=== PATIENT | female | born 1995 | race Caucasian/White ===

== ENCOUNTER 2020-10-22 14:28 | Observation (INO) | payer MEDICAID ==
[~2020-10-22] VITALS: Ht 162.6 cm; Wt 106.6 kg
== END 2020-10-22 16:25 | disposition home or self-care (01) ==
LOC: 8 EST LDRP 14:28
PROVIDERS: ADMIT Obstetrics & Gynecology; ATTEND Obstetrics & Gynecology
DX: O62.9 Abnormality of forces of labor, unspecified (principal); O99.891 Other specified diseases and conditions complicating pregnancy; M54.9 Dorsalgia, unspecified; Z3A.35 35 weeks gestation of pregnancy
CPT/HCPCS: 59025; G0378; 99281

== ENCOUNTER 2020-11-14 18:09 | Inpatient (IN) | payer MEDICAID ==
[~2020-11-14] VITALS: Ht 162.6 cm; Wt 104.8 kg
[2020-11-14] MEDS ORDERED: LACTATED RINGERS 1,000 ML IV SCH (21:15)
[2020-11-14] MEDS ORDERED: DEXT 5%/LR + PITOCIN 20UNITS/L 1,000 ML IV SCH ×2 (21:15→22:30)
[2020-11-14] MEDS ORDERED: BUTORPHANOL TARTRATE 2 MG/ML VIAL IV PRN (21:15)
[2020-11-14] MEDS ORDERED: CARBOPROST TROMETHAMINE 250 MCG/ML AMPUL IM PRN (21:15)
[2020-11-14] MEDS ORDERED: LIDOCAINE HCL 1% 20ML VIAL (Pyxis) INJ INFIL SCH (21:15)
[2020-11-14] MEDS ORDERED: METHYLERGONOVINE MALEATE 0.2 MG/ML IM PRN (21:15)
[2020-11-14] MEDS ORDERED: NALOXONE HCL 0.4 MG/ML 1ML VIAL IM PRN (21:15)
[2020-11-14 22:15] LABS: BASOPHILS % 0.9 % (0.0-2.0); EOSINOPHILS % 0.6 % (0.0-5.0); HEMATOCRIT. 30.3 % (36.0-48.0); HEMOGLOBIN. 10.3 g/dL (12.0-16.0); LYMPHOCYTES % 31.9 % (20.0-50.0); MEAN CORPUSCULAR HEMOGLOBIN 29.8 pg (28.0-32.0); MEAN CORPUSCULAR VOLUME 87.8 fL (81.0-99.0); MEAN PLATELET VOLUME 13.2 fl (7.4-10.4); MONOCYTES % 5.1 % (2.0-8.0); NEUTROPHILS % 61.5 % (40.0-76.0); PLATELET 113 x1000/uL (130-400); RED BLOOD CELL COUNT 3.45 mill/uL (4.2-5.4)
[2020-11-14 22:17] LABS: CLARITY URINE CLEAR (CLEAR); COLOR URINE YELLOW (YELLOW); KETONES URINE NEGATIVE (NEGATIVE); LEUKOCYTE ESTERASE URINE TRACE (NEGATIVE); NITRITE URINE NEGATIVE (NEGATIVE); OCCULT BLOOD URINE 2+ (NEGATIVE); PH URINE 6.5 (4.5-8.0); PROTEIN URINE 1+ (NEGATIVE); SPECIFIC GRAVITY URINE 1.014 (1.005-1.030); UROBILINOGEN URINE 0.2 E.U./dL (0.2-1.0)
[2020-11-14 22:27] LABS: INR 0.9; PARTIAL THROMBOPLASTIN TIME 25.4 sec (23.4-31.0)
[2020-11-14 22:32] LABS: METHADONE URINE SCREEN NEGATIVE (NEGATIVE); OPIATES URINE SCREEN NEGATIVE (NEGATIVE)
[2020-11-14 22:33] LABS: *AMPHETAMINES SCREEN URINE NEGATIVE (NEGATIVE); *BARBITURATES SCREEN URINE NEGATIVE (NEGATIVE); *BENZODIAZEPINES SCREEN URINE NEGATIVE (NEGATIVE); *COCAINE SCREEN URINE NEGATIVE (NEGATIVE); CANNABINOID URINE SCREEN NEGATIVE (NEGATIVE); PHENCYCLIDINE URINE SCREEN NEGATIVE (NEGATIVE)
[2020-11-14] MEDS ORDERED: ROPIVACAINE HCL/PF EPIDURAL 200 ML EPI SCH (23:00)
[2020-11-15] MEDS ORDERED: DEXT 5%/LACTATED RINGERS 1,000 ML IV SCH ×2 (00:15→00:45)
[2020-11-15] MEDS ORDERED: LEVO175T7 MT (00:29)
[2020-11-15] MEDS ORDERED: VIT500LI PO (00:29)
[2020-11-15] MEDS ORDERED: FERR236T3 MT (00:29)
[2020-11-15] MEDS ORDERED: PREN-182 MT (00:29)
[2020-11-15] MEDS ORDERED: FENTANYL CITRATE/PF 50MCG/ML 2ML VIAL ONE (02:48)
[2020-11-15] MEDS ORDERED: ROPIVACAINE HCL/PF EPIDURAL 200 ML EPI ONE (02:48)
[2020-11-15] MEDS ORDERED: OXYTOCIN 20 UNITS in LACTATED RINGERS 1,000 ML IV SCH (08:30)
[2020-11-15 10:00] VITALS: BP 132/75
[2020-11-15] MEDS ORDERED: DIPHENHYDRAMINE 25MG CAPSULE PO PRN (10:00)
[2020-11-15] MEDS ORDERED: LANOLIN OINT 7GM TUBE TOP PRN (10:00)
[2020-11-15] MEDS ORDERED: DEXT 5%/LR + PITOCIN 20UNITS/L 1,000 ML IV SCH (10:00)
[2020-11-15] MEDS ORDERED: GLYCERIN/WITCH HAZEL LEAF MEDICATED PAD TOP PRN (10:00)
[2020-11-15] MEDS ORDERED: BENZOCAINE/LANOLIN/ALOE VERA SPRAY TOP PRN (10:00)
[2020-11-15] MEDS ORDERED: BISACODYL 10MG SUPP PR PRN (10:00)
[2020-11-15] MEDS ORDERED: HEMORRHOIDAL SUPP PR PRN (10:00)
[2020-11-15] MEDS ORDERED: RHO(D) IMMUNE GLOBULIN 300 MCG/SYR IM PRN (10:00)
[2020-11-15] MEDS ORDERED: ACETAMINOPHEN WITH CODEINE 300/30MG TABLET PO PRN (10:00)
[2020-11-15] MEDS ORDERED: IBUPROFEN 400MG TABLET PO PRN (10:00)
[2020-11-15 11:00] VITALS: BP 119/68
[2020-11-15 12:10] VITALS: BP 127/73
[2020-11-15] MEDS: MAGNESIUM/ALUMINUM HYDROXIDE/SIMETHICONE 30ML UDC PO SCH ×3 (12:20→21:18)
[2020-11-15] MEDS: SIMETHICONE 80MG TABLET CHEW PO SCH ×2 (12:21→21:19)
[2020-11-15 14:20] VITALS: BP 122/79
[2020-11-15] MEDS: IBUPROFEN 800MG TABLET PO PRN (17:05)
[2020-11-15] MEDS: DOCUSATE SODIUM 100MG CAPSULE PO SCH (21:17)
[2020-11-15 22:00] VITALS: BP 116/61
[2020-11-16 05:53] VITALS: BP 114/69
[2020-11-16 06:43] LABS: BASOPHILS % 0.4 % (0.0-2.0); EOSINOPHILS % 1.2 % (0.0-5.0); HEMATOCRIT. 31.4 % (36.0-48.0); HEMOGLOBIN. 10.4 g/dL (12.0-16.0); LYMPHOCYTES % 23.4 % (20.0-50.0); MEAN CORPUSCULAR HEMOGLOBIN 29.7 pg (28.0-32.0); MEAN CORPUSCULAR VOLUME 89.3 fL (81.0-99.0); MEAN PLATELET VOLUME 13.3 fl (7.4-10.4); MONOCYTES % 3.6 % (2.0-8.0); NEUTROPHILS % 71.4 % (40.0-76.0); PLATELET 110 x1000/uL (130-400); RED BLOOD CELL COUNT 3.51 mill/uL (4.2-5.4)
[2020-11-16 07:45] VITALS: BP 118/80
[2020-11-16] MEDS: SIMETHICONE 80MG TABLET CHEW PO SCH ×5 (08:00→21:18)
[2020-11-16] MEDS: PRENATAL VIT/FE FUMARATE/FA TABLET PO SCH (08:29)
[2020-11-16] MEDS: IBUPROFEN 800MG TABLET PO PRN ×3 (08:29→20:58)
[2020-11-16] MEDS: FERROUS SULFATE 325MG TABLET PO SCH ×3 (08:29→15:47)
[2020-11-16] MEDS: MAGNESIUM/ALUMINUM HYDROXIDE/SIMETHICONE 30ML UDC PO SCH ×4 (08:30→21:18)
[2020-11-16 13:53] VITALS: BP 115/65
[2020-11-16 19:30] VITALS: BP 113/62
[2020-11-16] MEDS: DOCUSATE SODIUM 100MG CAPSULE PO SCH (21:18)
[2020-11-17 04:00] VITALS: BP 123/78
[2020-11-17] MEDS ORDERED: IBUP-2030 PO (07:06)
[2020-11-17] MEDS: MAGNESIUM/ALUMINUM HYDROXIDE/SIMETHICONE 30ML UDC PO SCH (07:30)
[2020-11-17] MEDS: FERROUS SULFATE 325MG TABLET PO SCH (07:30)
[2020-11-17 08:00] VITALS: BP 112/63
[2020-11-17] MEDS: SIMETHICONE 80MG TABLET CHEW PO SCH (08:00)
[2020-11-17] MEDS: PRENATAL VIT/FE FUMARATE/FA TABLET PO SCH (09:00)
[2020-11-17 13:54] LABS: HEPATITIS B SURFACE ANTIGEN NEGATIVE
== END 2020-11-17 12:15 | disposition home or self-care (01) | DRG 560 ==
LOC: INTOOBSV 18:09 → OBSVTOIN 18:09 → 8 EST LDRP 18:09 → 8EST 11-15 14:27
PROVIDERS: ADMIT Obstetrics & Gynecology; ATTEND Obstetrics & Gynecology
PROC: 10E0XZZ Delivery of Products of Conception, External Approach (ICD-10-PCS; principal; 2020-11-16)
PROC: 3E0R3BZ Introduction of Anesthetic Agent into Spinal Canal, Percutaneous Approach (ICD-10-PCS; 2020-11-16)
PROC: 00HU33Z Insertion of Infusion Device into Spinal Canal, Percutaneous Approach (ICD-10-PCS; 2020-11-16)
DX: O77.0 Labor and delivery complicated by meconium in amniotic fluid (principal); Z37.0 Single live birth; D64.9 Anemia, unspecified; Z3A.39 39 weeks gestation of pregnancy; Z20.822 Contact with and (suspected) exposure to COVID-19; O99.02 Anemia complicating childbirth
CPT/HCPCS: 36415; 76805; 76818; 80305; 81003; 82962; 85025; 86592; 86703; 86762; 86850; 86900; 87340; 87426; 99281; G0378; J2590; J2795; J3010; J7120; J7121